=== PATIENT | female | born 1955 | race Caucasian/White ===

== ENCOUNTER 2016-03-11 01:00 | Emergency (ER) | payer OTHER ==
[2016-03-11 01:14] VITALS: BP 219/83
[2016-03-11] MEDS ORDERED: MORPHINE IM ONE (01:28)
--- NOTE | 2016-03-11 01:28 | PROVIDER DOCUMENTATION ---
[facility] General <Maddie Jones - Last Filed: 03/11/16 01:29> - General Source: patient - History of Present Illness-[facility] Location: reports: dental Quality of Pain: reports: aching Severity: reports: mild Onset/Duration: reports: 3 days ago Timing: reports: still present Associated Symptoms: reports: tooth pain Locality of Occurance: Home Similar Symptoms Previously?: No Recently seen or treated by another doctor?: No <Adelina Brennan - Last Filed: 03/11/16 01:41> - General Chief Complaint: Toothache Stated Complaint: TOOTHACHE Time Seen by Provider: 03/11/16 01:21 Allergies/Adverse Reactions: Patient Allergies Allergy/AdvReac Type Severity Reaction Status Date / Time Penicillins Allergy Unknown Verified 07/25/14 18:11 Home Medications: Citalopram [Celexa] 40 mg PO DAILY 08/09/12 Enalapril/Hydrochlorothiazide [Enalapril-Hctz 10-25 mg Tablet] 1 each PO DAILY 08/09/12 Ropinirole HCl 1 mg PO QHS 08/09/12 - History of Present Illness-[facility] General Nature of Presenting Problem: 60 year old F presents to the ED with a cc of left upper dental pain with an onset of 3 days ago. Pt states that she has been taking T3 and Ibuprofen 800 mg. (Adelina Brennan) Review of Systems - Adult - REVIEW OF SYSTEMS - ADULT Constitutional: denies: chills, fever Eyes: reports: no symptoms reported Ears, Nose, Mouth & Throat: reports: mouth/dental pain. denies: mouth swelling Cardiovascular: denies: chest pain, palpitations Respiratory: denies: cough, shortness of breath Gastrointestinal: denies: abdominal pain, nausea, vomiting Genitourinary: reports: no symptoms reported Musculoskeletal: reports: no symptoms reported Integumentary: reports: no symptoms reported Neurological: reports: no symptoms reported Psychiatric: reports: no symptoms reported Endocrine: reports: no symptoms reported Hematologic/Lymphatic: reports: no symptoms reported Allergic/Immunologic: reports: no symptoms reported All Other Systems: Reviewed and Negative <Adelina Brennan - Last Filed: 03/11/16 01:41> Past History - Adult - PAST MEDICAL HISTORY-ADULT Review of Records: reports: Nursing Assessment Review, Medications Reviewed Major Childhood Illnesses: reports: denies history Cardiovascular: reports: HTN Psychiatric: reports: depression Endocrine/Immune: reports: lupus Other Conditions: reports: other (RLS) - PRIOR SURGERIES/PROCEDURES Surgical/Procedure History: reports: appendectomy, hysterectomy, orthopedic ( extremity) - IMMUNIZATION STATUS Childhood Immunizations: See Nurse Assessment Flu Vaccine: See Nurse Assessment - SOCIAL HISTORY Smoking: non-smoker Substance Use: none/never Alcohol Use Frequency: never <Adelina Brennan - Last Filed: 03/11/16 01:41> Physical Exam- EENT - Physical Exam EENT Initial Vital Signs Reviewed: Yes General Appearance: appears well, alert, no apparent distress Throat Exam: dental tenderness (left upper with redness and swelling) Respiratory: no respiratory distress Cardiovascular: regular rate, rhythm Integumentary: normal color, normal turgor, warm/dry Psych/Mental Status: AL, normal mood/affect, normal thought content, normal thought process, oriented x 3 <Adelina Brennan - Last Filed: 03/11/16 01:41> Progress <Maddie Jones - Last Filed: 03/11/16 01:29> <Adelina Brennan - Last Filed: 03/11/16 01:41> - PLAN OF CARE/RESULTS Progress/Plan/Lab Results: plan of care: medications Orders Category Date Time Status Clindamycin [Cleocin] Med 03/11/16 01:29 Discontinued 300 mg PO NOW ONE Morphine Med 03/11/16 01:28 Discontinued 4 mg IM NOW ONE Ondansetron Odt [Zofran Odt] Med 03/11/16 01:29 Discontinued 4 mg PO NOW ONE Vital Signs - 24 hr 03/11/16 01:08 Temperature 97.7 F Pulse Rate 70 Respiratory 18 Rate Blood Pressure 219/83 O2 Sat by Pulse 97 Oximetry Pt given results and will be d/c home w/ rx to follow up with PCP. Pt verbally understood instructions. PT remained clinically stable throughout the course of the ED stay and will return if symptoms worsen. (Adelina Brennan) Departure - Departure Time of Disposition Order: 01:29 Certified Medical Emergency: Emergent <Maddie Jones - Last Filed: 03/11/16 01:29> <Adelina Brennan - Last Filed: 03/11/16 01:41> - Departure DIAGNOSIS: Dental abscess, Dental decay Disposition: HOME 01 Condition: Stable Additional Instructions: Call [facility] or [facility] dental clinic for further management. [facility]:Appointments: . Continue taking pain medications as directed. Take antibiotics as directed. ED Follow Up Instructions: You have been treated by a care provider in the Emergency Department. These instructions are being provided to you so you can have an understanding of how to care for yourself upon discharge. Upon discharge from the Emergency Department, you are responsible for making arrangements for follow-up care by a physician of your choice. Take all prescribed medications as directed. Return to the Emergency Department immediately for any new or worsening symptoms. You may call the Physician Referral phone number at [phone] to obtain a list of Physicians who are taking new patients. Prescriptions: Clindamycin [Cleocin] 150 mg PO Q6HR #30 capsule Referrals: None,PCP [Primary Care Provider] - Attestation - Scribe Verification/Attestation Scribe:: Adelina Brennan Acting as Scribe for:: Maddie Jones Scribe documention review:: This chart was documented by a scribe and accurately reflects the service the provider performed and the decisions made by the provider. <Adelina Brennan - Last Filed: 03/11/16 01:41> Physician Attestation - Physician Attestation I, the provider, attest to the following statement:: Maddie Jones Physician documentation Attestation:: This documentation recorded by the scribe accurately reflects the service I personally performed and the decisions made by me. <Adelina Brennan - Last Filed: 03/11/16 01:41>
[2016-03-11] MEDS ORDERED: CLEOCIN PO ONE (01:29)
[2016-03-11] MEDS ORDERED: ZOFRAN ODT PO ONE (01:29)
== END 2016-03-11 02:00 | disposition home or self-care (01) ==
LOC: P.ED 01:00
DX: K04.7 Periapical abscess without sinus (principal); K02.9 Dental caries, unspecified; K08.89 Other specified disorders of teeth and supporting structures; I10 Essential (primary) hypertension; M32.9 Systemic lupus erythematosus, unspecified; G25.81 Restless legs syndrome; F32.9 Major depressive disorder, single episode, unspecified; Z79.899 Other long term (current) drug therapy
CPT/HCPCS: 96372; J2270

== ENCOUNTER 2019-02-01 04:25 | Inpatient (IN) ==
[2019-02-01] MEDS ORDERED: LR 1,000 ML ONE (07:29)
[2019-02-01] MEDS ORDERED: REGLAN ONE (07:29)
[2019-02-01] MEDS ORDERED: PEPCID ONE (07:29)
[2019-02-01] MEDS ORDERED: ENTEREG ONE (07:29)
[2019-02-01] MEDS ORDERED: MEFOXIN 2 GM/D5W 2 GM/50 ML IVPB ONE (07:30)
[2019-02-01 07:42] LABS: BASO# 0.04 X1000 (0.0-0.2); BASO% 0.4 % (0.0-0.8); EOS# 0.18 X1000 (0.0-0.7); EOS% 1.9 % (0.0-10.0); HEMATOCRIT 42.8 % (37.0-47.0); IMM GRAN# 0.05 X1000 (0.0-0.04); IMM GRAN% 0.5 % (0.0-0.5); LYMPH# 2.01 X1000 (1.2-3.4); LYMPH% 21.6 % (20.5-51.1); MCHC 32.7 g/dL (33-37); MCV 82.6 FL (81-99); MONO# 1.08 X1000 (0.11-0.59); MONO% 11.6 % (1.7-9.3); MPV 11.6 FL (7.4-10.4); NEUT# 5.93 X1000 (1.4-6.5); PLT 257 X1000 (130-400); RBC 5.18 XMIL (4.2-5.4); RDW 12.5 % (11.5-14.5); WBC 9.29 X1000 (4.8-10.8)
[2019-02-01] MEDS ORDERED: QUELICIN (DOSE) ONE (07:53)
[2019-02-01] MEDS ORDERED: XYLOCAINE-MPF 2% ONE (07:53)
[2019-02-01] MEDS ORDERED: STERILE WATER INJ. ONE (07:54)
[2019-02-01] MEDS ORDERED: DIPRIVAN 1% ONE (07:58)
[2019-02-01] MEDS ORDERED: NORCURON ONE ×2 (07:58→12:26)
[2019-02-01] MEDS ORDERED: BENADRYL ONE (07:58)
[2019-02-01 08:00] LABS: AGAP 16; BUN 13 mg/dL (8-22); CALCIUM 9.3 mg/dL (8.8-10.2); CHLORIDE 94 mmol/L (98-107); COSMO 271; CREATININE 0.6 mg/dL (0.5-0.9); ESTIMATED GFR > 60; GLUCOSE 181 mg/dL (70-104); POTASSIUM 3.8 mmol/L (3.5-5.1); SODIUM 133 mmol/L (136-145); TCO2 23 mmol/L (25-35)
[2019-02-01] MEDS ORDERED: SODIUM CHLORIDE 0.9% 10 ML ONE (10:50)
[2019-02-01] MEDS ORDERED: FENTANYL ONE ×2 (11:52→12:42)
[2019-02-01] MEDS ORDERED: EPHEDRINE ONE (12:16)
[2019-02-01] MEDS ORDERED: OFIRMEV 1000 MG/ISOTONIC SOLN 1,000 MG/100 ML BOTTLE ONE (12:36)
[2019-02-01] MEDS: MARCAINE 0.25% ONE (12:39)
[2019-02-01] MEDS ORDERED: NEO-SYNEPHRINE ONE (12:57)
[2019-02-01 13:46] LABS: URINE SOURCE CATH
[2019-02-01 13:49] LABS: BILIRUBIN URINE NEGATIVE (NEGATIVE); BLOOD URINE NEGATIVE (NEGATIVE); COLOR YELLOW; GLUCOSE URINE NEGATIVE (NEGATIVE); KETONE URINE 10 mg/dL (NEGATIVE); LEUKOCYTES URINE NEGATIVE (NEGATIVE); NITRITE URINE NEGATIVE (NEGATIVE); PROTEIN URINE TRACE mg/dL (NEGATIVE); SP GRAVITY URINE 1.031; TURBIDITY URINE TURBID (CLEAR); UR EPITHELIAL CELLS <10 /HPF (<10); URINE BACTERIA NEGATIVE /HPF; URINE RBC <10 /HPF (<10); URINE WBC <10 /HPF (<10); UROBILINOGEN URINE NORMAL (NORMAL)
[2019-02-01] MEDS ORDERED: DECADRON ONE (14:10)
[2019-02-01] MEDS ORDERED: ZOFRAN ONE (14:10)
[2019-02-01] MEDS ORDERED: ROBINUL ONE (14:26)
[2019-02-01] MEDS ORDERED: NEOSTIGMINE ONE (14:27)
[2019-02-01] MEDS ORDERED: DILAUDID ONE (14:56)
[2019-02-01] MEDS ORDERED: D5 1/2 NS + KCL 20 MEQ 1,000 ML ONE (15:13)
[2019-02-01] MEDS ORDERED: NORCO-10 ONE (15:26)
[2019-02-01] MEDS ORDERED: PHENERGAN ONE (15:37)
[2019-02-01] MEDS ORDERED: TYLENOL PO PRN (16:48)
[2019-02-01] MEDS ORDERED: TYLENOL PR PRN (16:48)
[2019-02-01] MEDS: D5 1/2 NS + KCL 20 MEQ 1,000 ML IV SCH (17:54)
[2019-02-01] MEDS: MORPHINE IV PRN (18:30)
[2019-02-01] MEDS: PERIDEX MT SCH (21:12)
[2019-02-01] MEDS: MEFOXIN 2 GM/NS 2 GM/50 ML IVPB IV SCH (21:12)
--- NOTE | 2019-02-01 22:22 | OPERATIVE NOTE ---
PROCEDURE DATE: 02/01/2019 PREOPERATIVE DIAGNOSES: 1. Colon polyp at the cecum, too large to completely excise. 2. Family history of colon cancer. POSTOPERATIVE DIAGNOSES: 1. Colon polyp at the cecum, too large to completely excise. 2. Family history of colon cancer. PROCEDURES: Diagnostic robot-assisted laparoscopy with mobilization of the hepatic flexure converted to open right hemicolectomy via subcostal incision. SURGEON: Daniel Gibbons MD. EXECUTIVE MANAGER: Dr. Mckenzie. Dr. Mckenzie assisted the entirety of the case. His presence was crucial to completion of the case. ANESTHESIA: General endotracheal. INTRAOPERATIVE FINDINGS: Tattoo area was noted in the cecum. COMPLICATIONS: None at time of this dictation. ESTIMATED BLOOD LOSS: 100 mL. SPECIMEN REMOVED: Colon BRIEF HISTORY: A 63-year-old female who is morbidly obese who had a colonoscopy done by me and had a polyp that was too big to remove. Although biopsy showed tubular adenoma, I felt that given her family history, she wanted it removed. We did discuss the possibility of doing a colonoscopy in a year, but she wanted to proceed with the surgery given her family history. The risks, benefits, and alternatives of the procedure were discussed. Risks including, but not limited to bleeding, infection, risk of anesthesia, risk of anastomotic leak, risk of injury to other organs discussed. All questions answered. She voiced understanding. DESCRIPTION OF PROCEDURE: After informed consent was obtained, patient was brought to the operative theater, transferred to the operating table and placed in supine position. General endotracheal anesthesia was then performed without complication. Anesthesia then did TAP block without complication. We then turned our attention to the abdomen. We made a supraumbilical incision using Optiview technique and first inserted the 5 mm trocar, connected to insufflation and pneumoperitoneum was achieved. We then placed the trocars for a right hemicolectomy robotically, 1 subxiphoid, 1 in the left upper quadrant, 1 lower midline. We turned our attention to the robot console. It was very difficult to manipulate around with a robot given the patient's body habitus. We tried several maneuvers to try to visualize better but is very difficult. I was able to mobilize the colon medial and did a lateral to medial approach, but again I was unable to fully do the procedure robotically given her body habitus. I did see the tattoo. At this point, I elected to convert to an open. We removed all trocars, disconnected insufflation and pneumoperitoneum was released. The robot was de-docked. We then made a right subcostal incision. We did this because of her body habitus and where the colon was. It was a very high-riding cecum, almost at the liver itself. We carried all the way down to the fascia into the abdomen to the right subcostal incision. We were able to identify the colon. We mobilized along the white line of Toldt further and medialized it. We then found a spot in the terminal ileum 5 cm in vivo from the ileocecal valve and came across it with stapler. We then found an area 7 cm in vivo from the area of the ink and the cecum. This was likely in the hepatic flexure. We fired a stapler across it. We used the LigaSure to come across the mesentery maintaining hemostasis with electrocautery and LigaSure. We then elected to do a hand-sewn anastomosis with the terminal ileum to the transverse colon. We did this in 2 layers using 3-0 Vicryl and 3-0 silk. The lumen appeared patent and viable. There was good bleeding noted. We then closed the mesenteric defect. We then irrigated out the abdomen until the suction fluid was clear. I did not see any other injury to surrounding tissues, but visualization was very hard given her body habitus. We then closed the fascia in layers using #1 Vicryl, closing both the anterior and posterior sheaths. We then closed the skin with sherri. The patient tolerated the procedure well and was transferred back to the recovery room. cc: Daniel Gibbons MD
[2019-02-02] MEDS: NORCO-10 PO PRN ×5 (02:38→23:41)
[2019-02-02] MEDS: MEFOXIN 2 GM/NS 2 GM/50 ML IVPB IV SCH ×4 (03:55→18:44)
[2019-02-02] MEDS: HEPARIN SUBQ SCH ×3 (06:39→21:56)
[2019-02-02] MEDS: ENTEREG PO SCH ×2 (09:18→21:56)
[2019-02-02] MEDS: VASOTEC PO SCH (09:18)
[2019-02-02] MEDS: HYDROCHLOROTHIAZIDE PO SCH (09:18)
[2019-02-02] MEDS: PERIDEX MT SCH ×2 (09:19→21:56)
[2019-02-02] MEDS: PRILOSEC PO SCH (09:19)
[2019-02-02] MEDS: D5 1/2 NS + KCL 20 MEQ 1,000 ML IV SCH (13:12)
--- NOTE | 2019-02-02 16:03 | GENERAL SURGERY PROGRESS NOTE ---
DATE: 02/02/2019 SUBJECTIVE: Patient seems to be doing okay. She is tolerating her clear liquids. She is having some soreness from her right upper quadrant incision, but otherwise is doing okay. OBJECTIVE: Vital Signs: Patient is currently afebrile. Her vital signs stable. General: No acute distress. Cardiovascular: Regular rate and rhythm. Lungs: Grossly clear. Abdomen: Soft, appropriately tender. ASSESSMENT AND PLAN: A 63-year-old female, status post open right hemicolectomy. Open right hemicolectomy. At this time, we will continue supportive care. We will continue enhanced recovery after surgery protocol. We will continue to mobilize and encourage ambulation with the patient. cc: Daniel Gibbons MD
[2019-02-02] MEDS: MARCAINE 0.25% ONE (19:32)
[2019-02-02] MEDS: MORPHINE IV PRN (21:55)
[2019-02-03] MEDS: HEPARIN SUBQ SCH ×3 (06:34→21:03)
[2019-02-03] MEDS: ZOFRAN IV PRN (09:15)
[2019-02-03] MEDS: PERIDEX MT SCH ×2 (09:16→21:03)
[2019-02-03] MEDS: NORCO-10 PO PRN ×2 (09:16→16:53)
[2019-02-03] MEDS: PRILOSEC PO SCH (09:17)
[2019-02-03] MEDS: VASOTEC PO SCH (09:17)
[2019-02-03] MEDS: ENTEREG PO SCH ×2 (09:17→21:03)
[2019-02-03] MEDS: HYDROCHLOROTHIAZIDE PO SCH (09:17)
[2019-02-03] MEDS: D5 1/2 NS + KCL 20 MEQ 1,000 ML IV SCH (14:16)
--- NOTE | 2019-02-03 19:17 | GENERAL SURGERY PROGRESS NOTE ---
DATE: 02/03/2019 SUBJECTIVE: The patient seems to be doing okay. She has tolerated her diet. She has not passed any gas yet. She is up and ambulating. She says she probably overdid it a little bit, but otherwise is doing okay. OBJECTIVE: Vital signs: The patient is currently afebrile. Her vital signs stable.General: No acute distress. Cardiovascular: Regular rate and rhythm. Lungs grossly clear. Abdomen is soft, obese. Some faint bowel sounds auscultated. Incision with dressing intact. ASSESSMENT AND PLAN: A 63-year-old female, currently postoperative day #2 from open right hemicolectomy. Postoperative state. At this time continue to monitor. We will remove her Matute catheter. We will continue enhanced recovery after surgery protocol. Hopefully we can continue to mobilize her and she will have return of bowel function, but right now I will continue to monitor. cc: Daniel Gibbons MD
[2019-02-03] MEDS: MORPHINE IV PRN (21:03)
[2019-02-04] MEDS: MORPHINE IV PRN ×2 (03:38→21:08)
[2019-02-04] MEDS: HEPARIN SUBQ SCH ×3 (05:15→21:09)
[2019-02-04] MEDS: PERIDEX MT SCH ×2 (10:17→21:09)
[2019-02-04] MEDS: VASOTEC PO SCH (10:17)
[2019-02-04] MEDS: ENTEREG PO SCH ×2 (10:17→21:09)
[2019-02-04] MEDS: NORCO-10 PO PRN ×2 (10:18→18:20)
[2019-02-04] MEDS: HYDROCHLOROTHIAZIDE PO SCH (10:18)
[2019-02-04] MEDS: PRILOSEC PO SCH (10:18)
[2019-02-04] MEDS: ZOFRAN IV PRN (10:19)
[2019-02-04] MEDS: D5 1/2 NS + KCL 20 MEQ 1,000 ML IV SCH (10:25)
--- NOTE | 2019-02-04 10:49 | GENERAL SURGERY PROGRESS NOTE ---
DATE: 02/04/2019 SUBJECTIVE: Patient seems to be doing okay. She is still better. She has not passed gas but she is not sick to her stomach. OBJECTIVE: Vital Signs: Patient is hemodynamically stable. She has been afebrile. General: No acute distress. Cardiovascular: Regular rate and rhythm. Lungs: Grossly clear. Abdomen: Obese. Incision with dressing intact. Faint bowel sounds auscultated. ASSESSMENT AND PLAN: A 63-year-old female, currently postoperative day #3 from open right hemicolectomy. Postoperative state at this time. Encourage ambulation. We will continue to monitor and await return of bowel function. cc: Daniel Gibbons MD
[2019-02-05] MEDS: MORPHINE IV PRN (01:15)
[2019-02-05] MEDS: HEPARIN SUBQ SCH ×3 (06:01→20:44)
[2019-02-05] MEDS: D5 1/2 NS + KCL 20 MEQ 1,000 ML IV SCH (06:01)
--- NOTE | 2019-02-05 06:26 | GENERAL SURGERY PROGRESS NOTE ---
DATE: 02/05/2019 SUBJECTIVE: Patient doing well. She says she has passed gas. OBJECTIVE: Vital Signs: Patient is currently afebrile. Her vital signs are stable. General: No acute distress. Cardiovascular: Regular rate and rhythm. Lungs: Grossly clear. Abdomen: Soft and appropriately tender. Obese. ASSESSMENT AND PLAN: A 63-year-old female currently postoperative day #4 from open right hemicolectomy. Postoperative state. At this time, patient seems to be doing well. She has had some return of bowel function. She has a little bit of nausea, but otherwise seems to be doing okay. We will continue to monitor until she has definitive return of bowel function. cc: Daniel Gibbons MD
[2019-02-05] MEDS: NORCO-10 PO PRN ×3 (09:02→20:46)
[2019-02-05] MEDS: PRILOSEC PO SCH (09:02)
[2019-02-05] MEDS: PERIDEX MT SCH ×2 (09:02→20:44)
[2019-02-05] MEDS: ENTEREG PO SCH ×2 (09:02→20:44)
[2019-02-05] MEDS: HYDROCHLOROTHIAZIDE PO SCH (09:02)
[2019-02-05] MEDS: VASOTEC PO SCH (09:11)
[2019-02-06] MEDS: NORCO-10 PO PRN ×2 (02:41→11:37)
[2019-02-06] MEDS: HEPARIN SUBQ SCH ×3 (03:26→15:51)
[2019-02-06] MEDS: D5 1/2 NS + KCL 20 MEQ 1,000 ML IV SCH ×2 (04:45)
[2019-02-06] MEDS: PERIDEX MT SCH (11:37)
[2019-02-06] MEDS: HYDROCHLOROTHIAZIDE PO SCH (11:37)
[2019-02-06] MEDS: VASOTEC PO SCH (11:37)
[2019-02-06] MEDS: PRILOSEC PO SCH (11:37)
[2019-02-06] MEDS: ENTEREG PO SCH (11:37)
--- NOTE | 2019-02-06 13:24 | GENERAL SURGERY PROGRESS NOTE ---
DATE: 02/06/2019 SUBJECTIVE: Patient doing okay. She tolerated her diet. She is a little sick to her stomach. She is passing gas, but has not had a bowel movement. OBJECTIVE: Vital Signs: Patient is currently afebrile. Her vital signs stable. General: No acute distress. Cardiovascular: Regular rate and rhythm. Lungs: Grossly clear. Abdomen: Soft, appropriately tender. Obese. Bowel sounds auscultated. ASSESSMENT AND PLAN: A 63-year-old female, currently postoperative day number 5 from open right hemicolectomy. Postoperative state: At this time, the patient seems to be doing okay. We will need to wait for more definitive return of bowel function and make sure she does not stay sick to her stomach, but hopefully she can be discharged here in the near future. cc: Daniel Gibbons MD
[2019-02-06 15:39] VITALS: BP 121/62
--- NOTE | 2019-02-08 13:34 | DISCHARGE SUMMARY ---
ADMISSION DATE: 02/01/2019 DISCHARGE DATE: 02/06/2019 ADMITTING DIAGNOSIS: Large cecal polyp. DISCHARGE DIAGNOSIS: Status post open right hemicolectomy. ADMITTING PHYSICIAN: Dr. Daniel Gibbons. CONSULTATIONS: None. PROCEDURES: On 02/01/2019, the patient underwent open right hemicolectomy. BRIEF HISTORY AND COURSE OF STAY: A 63-year-old female who was admitted for a polyp that could not be completely removed. She had a strong family history of colon cancer. She wanted it removed. She was admitted and underwent the previously described procedure, which she tolerated well. Her postoperative course was essentially uneventful. She was started on a diet on postop day #0 and was advanced slowly. On postop day #5, the patient was up and ambulating, passing gas, tolerating a diet, not having any significant pain, and doing well, and was hemodynamically stable. We had an extensive discussion with the patient. She felt safe to go home. She wanted to go home. All arrangements were made. DISPOSITION: Home. FOLLOWUP: The patient was told to follow up with Dr. Gibbons in 1 to 2 weeks. PRESCRIPTIONS: The patient was given prescriptions for postop pain medicine and nausea medicine. DISCHARGE INSTRUCTIONS: The patient was given standard discharge instructions for colectomy. cc: Daniel Gibbons MD
--- NOTE | 2019-02-09 00:24 | DISCHARGE SUMMARY ---
ADMISSION DATE: 02/01/2019 DISCHARGE DATE: 02/06/2019 ADMITTING DIAGNOSIS: Large cecal polyp not amenable to endoscopic resection. DISCHARGE DIAGNOSIS: Status post open right hemicolectomy. ADMITTING PHYSICIAN: Daniel Gibbons MD. CONSULTATIONS: None. PROCEDURES: On 02/01/2019, the patient underwent open right hemicolectomy. BRIEF HISTORY AND COURSE OF STAY: This is a 63-year-old female admitted after colonoscopy showed a large mass that could not be completely removed. She had a strong family history of colon cancer. She wanted to have it removed. We admitted her. She underwent previously described procedure, which she tolerated well. Her postoperative course was uncomplicated. We were able to slowly advance her diet to the point where she was tolerating a regular diet and passing gas. On the day of discharge, she was hemodynamically stable, passing gas, and tolerating her diet but she had not had a bowel movement. She did want to go home. We made arrangements for that. Again, she had been hemodynamically stable and tolerating her diet. DISPOSITION: Home. DISCHARGE CONDITION: Stable. FOLLOWUP: The patient was told to follow up with Dr. Gibbons, her primary care physician. DISCHARGE INSTRUCTIONS: The patient was given standard discharge instructions for a colectomy. DISCHARGE MEDICATIONS: The patient was given postoperative pain medicine. cc: Daniel Gibbons MD
== END 2019-02-06 17:44 | disposition home or self-care (01) | DRG 330 ==
LOC: SURHOLD 04:25 → 4N 16:11
PROVIDERS: ADMIT Surgery; ATTEND Surgery